=== PATIENT | female | born 1970 | race Two or more races ===

== ENCOUNTER 2024-11-08 10:04 | Outpatient (RCR) | payer MEDICAID, SELFPAY ==
--- NOTE | 2024-11-08 10:00 | XR_ITS ---
Examination: LOUIS, hepatobiliary radioisotope scan Gallbladder ejection fraction study. Date and time of exam: November 08, 2024 1028 hours INDICATIONS: Nausea vomiting abdominal pain and acid reflux heartburn 4 months Technique: 5.8 mCi of 99M Hepatolite administered. Serial imaging then obtained from immediate through 60 minutes. 1.8 mcg selective catheter Kinevac administered for gallbladder ejection fraction study. Findings: Radioisotope activity within the liver is reasonably homogenous. Gallbladder, common bile duct small bowel activity noted Impression: Gallbladder activity Abnormal gallbladder ejection fraction, 21%, normal greater than 35%
[2024-11-08 10:35] LABS: HCG Qualitative,Urine Negative
== END 2024-11-13 23:59 | disposition home or self-care (01) ==
LOC: SNUC 10:04
PROVIDERS: PCP Family Medicine; Referring Provider Surgery; Visit Provider Surgery
DX: R93.2 Abnormal findings on diagnostic imaging of liver and biliary tract (principal); Z32.00 Encounter for pregnancy test, result unknown
CPT/HCPCS: 78227; 81025; A9537; J2805

== ENCOUNTER 2025-02-15 05:55 | Day surgery (SDC) | payer MEDICAID, SELFPAY ==
[2025-02-14 11:35] VITALS: BMI 33.3
[2025-02-14 13:28] LABS: Basophils # (Auto) 0.1 Thou/mm3 (0.0-0.2); Basophils % (Auto) 1 % (0-2.5); Eosinophils # (Auto) 0.1 Thou/mm3 (0.0-0.5); Eosinophils % (Auto) 2 % (0-10); Hematocrit 31.9 % (36.0-46.0); Hemoglobin 9.5 g/dL (12.0-16.0); Immature Granulocytes % (Auto) 0 % (0-0); Immature Granulocytes Auto 0.02 Thou/mm3 (0.00-0.00); Lymphocytes # (Auto) 2.2 Thou/mm3 (1.0-4.8); Lymphocytes % (Auto) 34 % (10-50); Mean Corpuscular HGB Conc 29.8 g/dl (31.0-37.0); Mean Corpuscular Hemoglobin 20.1 pg (25.0-35.0); Mean Corpuscular Volume 67 fL (80-100); Monocytes # (Auto) 0.5 Thou/mm3 (0.0-0.8); Monocytes % (Auto) 8 % (0-12); Neutrophils # (Auto) 3.7 Thou/mm3 (1.8-7.7); Neutrophils % (Auto) 55 % (37-80); Nucleated Red Blood Cell % 0 /100 WBC (0); Platelet Count 331 Thou/mm3 (140-440); RDW Standard Deviation 43.8 fL (36.4-46.3); Red Blood Count 4.73 Miln/mm3 (4.00-5.20); White Blood Count 6.6 Thou/mm3 (3.6-11.0)
[2025-02-14 13:31] LABS: Beta HCG,Quantitative 2 mIU/mL (<5.0)
[2025-02-14 13:33] LABS: Alanine Aminotransferase 10 U/L (10-49); Albumin, Serum 4.2 gm/dL (3.5-5.0); Albumin/Globulin Ratio 1.4 (1.2-2.2); Alkaline Phosphatase 73 U/L (46-116); Anion Gap 7 (7-16); Aspartate Amino Transferase 16 U/L (0-34); BUN/Creatinine Ratio 17 Ratio (12-20); Bilirubin,Total 0.6 mg/dL (0.3-1.2); Blood Urea Nitrogen 12 mg/dL (9-23); Carbon Dioxide 27.8 mMol/L (20.0-31.0); Chloride 104 mMol/L (98-107); Creatinine (Component) 0.7 mg/dL (0.6-1.3); Estimated Creatinine Clearance 91.5 mL/min (>60); Globulin 3.1 gm/dL (2.3-3.5); Glucose 95 mg/dL (74-106); Osmolality,Calculated 277 (275-295); Potassium 3.6 mMol/L (3.4-5.1); Sodium 139 mMol/L (136-145); Total Protein 7.3 gm/dL (5.7-8.2); eGFR > 60 See Note
[2025-02-14 13:50] LABS: Partial Thromboplastin Time 26.8 Seconds (22.0-36.0); Prothrombin Time 11.2 Seconds (9.0-12.2)
--- NOTE | 2025-02-14 17:51 | ESHP_ITS ---
RE: DORITA BEYER : 1970 DATE OF ADMISSION: 02/15/2025 HISTORY OF PRESENT ILLNESS: This patient is a 55-year-old female from [facility], who was seen for upper abdominal pain in September. Her pain is relieved with antacids and proton pump inhibitors. She had some vomiting after eating. She describes this pain as occurring on both sides of her abdomen after eating. Pain gets better after vomiting. She has been referred to plant accountant, but she is waiting for an appointment. PAST MEDICAL HISTORY: Revealed severe reflux disease. PHYSICAL EXAMINATION: GENERAL: female, who is 5 feet 2 inches tall and weighing 183 pounds with BMI of 33.6. VITAL SIGNS: Temperature is 97.3, pulse 71, respirations 20, and BP 118/80. Examination of all the systems are normal. HEENT: Examination of head is normal. Eyes, ears, nose and throat normal. NECK: Normal. Thyroid normal. CHEST: Revealed good breath sounds on both sides. HEART: Sinus rhythm. No murmurs. ABDOMEN: Showed some tenderness in the upper abdomen without localizing to any site. The patient has had ultrasound, which showed possible cholelithiasis or microlithiasis with sledge. The patient also had HIDA scan ordered by me at [facility] on 11/08/2024, which showed abnormal ejection fraction of 21%. IMPRESSION: 1. Microlithiasis causing symptoms. 2. Poor ejection fraction of the gallbladder. COURSE OF ACTION: I would ask the patient to undergo laparoscopic cholecystectomy. The procedure was explained to her in detail including potential complications. She was told that she may not get better even after surgery because her symptoms are very vague. She understands and is agreeable to the procedure. DT: 16:55:40 TT: 17:50:00 Ref: [id number] - TID: [id number]
[2025-02-15] VITALS (11 sets, daily range): BP systolic 99–125; BP diastolic 50–64; PULSE 60–96; RESP 14–20; TEMP 36.3–36.7; O2SAT 96–100; BMI 33.3
[2025-02-15] MEDS: RINGERS LACTATED 1000 ML 1,000 ML 20 ML IV (07:14)
--- NOTE | 2025-02-15 09:42 | SUR.PHASEI ---
0942 Patient arrived to recovery resting comfortably in [facility], obtunded, on oxygen 8L via oxy mask, breathing unlabored, vital signs stable, dressing intact to [facility]; dissolvable sutures, gauze, medipore tape, no bleeding noted, report received by Max MORTON and Max GENTILE
--- NOTE | 2025-02-15 09:44 | PD.SUROPNT ---
Date of Procedure 02/15/25 Pre Op Diagnosis Biliary dyskinesia with poor gallbladder ejection fraction Tiny gallstones Post Op Diagnosis Biliary dyskinesia, no gallbladder stones Procedure Laparoscopic cholecystectomy Findings Patient was found to have tiny gallstones on the ultrasound and she also had a poor ejection fraction on the HIDA scan. Because of her symptoms I scheduled her for laparoscopic cholecystic Procedure Description After endotracheal anesthesia was given the patient was placed in supine position and the abdomen was prepped with chloroprep solution and draped in a sterile manner. After time out was performed I injected a few cc of of half percent Marcaine with epinephrine below the umbilicus and I made an incision for about 3 cm in length. The fascia was cleaned and Veress needle was inserted to create a pneumoperitoneum up to 13 mmHg. Then introduced a 12 mm trocar and a 10 mm camera through the fascia and I inspected the intra-abdominal organs as well as the gallbladder and the liver. Another 5 mm trocar was inserted in the epigastric region under direct vision after injecting some local anesthesia. At this time the patient was kept in reverse Trendelenburg position with the left lateral tilt. The third 5 mm trocar was inserted over the mid axillary line under direct vision and a Richmond and Lauren grasper was used to hold the fundus of the gallbladder. The retraction was carried out by the pediatric dental assistant moving the fundus of the gallbladder towards the right shoulder of the patient to create enough traction. I placed a another 5 mm trocar in the midaxillary line just lateral to the rectus muscle under direct vision. I used a fenestrated grasper to retract the neck of the gallbladder laterally towards the patient's right hip. The Calot's triangle was exposed and I achieved the critical view of safety as follows: I dissected out the fatty tissue from the hepatocystic triangle and cleared this area. I also dissected inferior and posterior to the gallbladder to identify the cystic duct and the gallbladder wall. Then superiorly I dissected along the cystic plate up to lower one third third of the gallbladder to lift the gallbladder from the liver. At this time I confirmed that only 2 structures entering the gallbladder were cystic artery and the cystic duct. The common duct was seen distally but no dissection was carried out around the duct. I did not see any need for operative cholangiogram in this patient. The cystic duct was clipped doubly and then divided and cystic artery was similarly dealt with. Then the gallbladder was removed from the liver bed using Harmonic constantine to control the small blood vessels as the dissection proceeded. Then the gallbladder was from the liver bed completely and delivered through the umbilical port using an Endopouch. The liver bed was coagulated with cautery to obtain satisfactory hemostasis. The trocars were pulled out from the abdominal cavity and the fascia at the umbilical incision was closed with interrupted 0 Ethibond. Subcutaneous tissues was closed with 3-0 chromic and injected a few cc of half percent Marcaine with epinephrine and the skin was closed with interrupted 4-0 nylon stitches at all the trocar sites. Dressing was applied with 2 x 2 and Tegaderm. Patient tolerated the procedure well and returned to recovery room in stable condition. Anesthesia GETA Pathology / specimen Other (Gallbladder) Estimated Blood Loss 20 Surgeon Mami Porter MD Surgical Staff Operation Date: 02/15/25 08:00 Case Staff GEOTHERMAL POWERPLANT MECHANIC HELPER: Max Reeder
[2025-02-15] MEDS: HYDROmorphone INJ 2 MG/ML VIAL 0.5 MG IV (10:23)
--- NOTE | 2025-02-15 11:03 | SUR.PHASEII ---
1103 Patient meets discharge criteria from recovery, awake and alert, breathing unlabored, vital signs stable, denies pain, dressing intact to abdomen; sutures, adaptic, gauze, medipore tape, no bleeding noted, drinking 7up; tolerating well, denies nausea, patient assisted with dressing into her clothing, discharge instructions given with assistance of son cap parts cutter Estonian to patient, son signed discharge instructions. Patient given all her belongings prior to discharge, transported via wheelchair and left in a private vehicle.
== END 2025-02-15 11:03 | disposition home or self-care (01) ==
PROVIDERS: Anesthesiology; PCP Family Medicine; Referring Provider Surgery; Visit Provider Surgery
PROC: 0FT44ZZ Resection of Gallbladder, Percutaneous Endoscopic Approach (ICD-10-PCS; CPT 47562; principal; 2025-02-15 08:00)
DX: K81.1 Chronic cholecystitis (principal); K82.8 Other specified diseases of gallbladder
CPT/HCPCS: 47562; 36415; 80053; 84702; 85025; 85610; 85730; A4217; A4649; J0690; J0694; J1100; J2250; J2371; J2405; J2704; J3010; J3490; J7120; A9270; J1596